=== PATIENT | female | born 1960 | race Caucasian/White ===

== ENCOUNTER 2023-12-01 23:00 | Emergency (ER) | payer OTHER, SELFPAY ==
[2023-12-01 23:12] VITALS: BP 133/97
--- NOTE | 2023-12-01 23:53 | ED.GENMED ---
History of Present Illness
General
Chief Complaint: Skin Problem
Time Seen by Provider: 12/01/23 23:24
Travel History
Have you had any contact with someone who has COVID-19?: No
Do you have any symptoms of coronavirus? Fever > 100 degrees, chills, cough, shortness of breath, sore throat, loss of taste or smell, muscle aches, or headache?: No
History of Present Illness
History of Present Illness:
63-year-old female presents to the emergency department for evaluation of redness and swelling to the upper sternum that began earlier today. Denies any trauma. No fevers or chills.
Past History
Past History
ED Past Medical History: None
ED Past Surgical History: None
Social History
Tobacco: Non-smoker
Review of Systems
Review of Systems
Allergies reviewed?: Yes
All Other Systems: ROS reviewed and negative except as documented in HPI and ROS
Phy Exam
Physical Exam
Physical Exam:
GEN: Well appearing, NAD, WDWN
HEENT: Oral mucosa moist, no scleral icterus
Cardiac: Regular rate
Lung: No respiratory distress, no tachypnea
MSK: No gross deformity or injuries
Skin: Good color, no pallor or jaundice, no rashes. 2 cm erythematous/indurated mass to the central chest/upper sternum, tender to palpation
Neuro: AO x3, moves all extremities freely
Psych: Calm, cooperative
Course
Orders/Labs/Results
Orders:
Orders
12/01/23 23:57
Sulfamethox./Trimethoprim Ds [Bactrim Ds 800 mg/160 mg] 1 tablet PO NOW STA
Vital Signs
Initial and Last Documented VS:
Initial Vital Signs
Temp Pulse Resp BP Pulse Ox
98.8 F 76 18 133/97 98
12/01/23 23:12 12/01/23 23:12 12/01/23 23:12 12/01/23 23:12 12/01/23 23:12
Last Documented Vital Signs
Temp Pulse Resp BP Pulse Ox
98.6 F 76 18 133/97 98
12/02/23 00:13 12/01/23 23:12 12/01/23 23:12 12/01/23 23:12 12/01/23 23:12
Procedures
Incision/Drainage/Joint Aspiration
upper chest:
Anethesia: 1% Lidocaine with Epi
Preparation: cleaned with alcohol wipe
Type of procedure: incise
Nature of site: cyst
Description of abscess: less than 3cm
Loculations broken up: Yes
How much fluid was obtained?: small amount
Fluid description: purulent and foul smelling
MDM/Problems Addressed
MDM/Problems Addressed:
Bedside incision and drainage performed with good results, will start the patient on a short course of antibiotics due to the adjacent erythema
*Critical Care Note
Total Time (30-74mins, 75-104mins- exclusive of procedures): Not Applicable
ED Attending Note
-
Portions of this chart may have been created with voice recognition software.� Occasional wrong word or��sound alike� substitutions may have occurred due to the inherent limitations of voice recognition software.
Discharge Plan
Departure
Patient Disposition: Home (Routine Discharge)
Date of Disposition: 12/01/23
Time of Disposition: 23:53
Patient with high blood pressure during this ER visit?: No
Discharge Problem:
Infected sebaceous cyst of skin
Instructions: Skin Abscess
Prescriptions:
New
sulfamethoxazole-trimethoprim [Bactrim DS] 800-160 mg tablet
1 tab PO BID Qty: 10 0RF
Interventions
Interventions:
*Risk Screen - Suicide Last Done: 12/01/23 23:12
*Neglect/Abuse Screening Last Done: 12/01/23 23:12
*ED COVID-19 Vaccine History Last Done: 12/01/23 23:12
*Nursing Disposition Last Done: 12/02/23 00:13
ED-Skin Assessment Last Done: 12/01/23 23:55
Discharge Date and Time
Discharge Date/Time: 12/02/23 00:15
Print Language: THAI
[2023-12-02] MEDS: BACTRIM DS 800 MG/160 MG 1 TABLET PO (00:10)
== END 2023-12-02 00:15 | disposition home or self-care (01) ==
LOC: EMR 23:00
PROVIDERS: EMERGENCY PHYSICIAN Emergency Medicine; FAMILY PHYSICIAN Family Medicine
DX: L72.3 Sebaceous cyst (principal); L08.9 Local infection of the skin and subcutaneous tissue, unspecified
CPT/HCPCS: 99283; 10060